=== PATIENT | male | born 1980 | race Caucasian/White ===

== ENCOUNTER 2019-06-13 21:20 | Emergency (ER) | payer OTHER ==
[~2019-06-13] VITALS: Ht 180.3 cm; Wt 87.1 kg
--- NOTE | 2019-06-13 21:35 | NUR ---
PT CAME INTO THE ED C/O R HAND PAIN S/P FALLING OFF SKATEBOARD. DENIES KO. PT AAOX4, VSS, NO ACUTE DISTRESS NOTED. PT CONNECTED TO THE MONITOR AND POX.
--- NOTE | 2019-06-13 22:17 | NUR ---
XRAY AT BEDSIDE
[2019-06-13] MEDS ORDERED: HYDROCODONE/APAP 10/325MG 1 EA TABLET ONE (22:18)
[2019-06-13] MEDS: HYDROCODONE/APAP 10/325MG 1 EA TABLET PO ONE (22:23)
--- NOTE | 2019-06-13 22:52 | NUR ---
Patient discharged to home in stable condition. Written and verbal after care instructions given. Patient verbalizes understanding of instruction.
[2019-06-13 22:53] VITALS: BP 117/84
== END 2019-06-13 22:54 | disposition home or self-care (01) ==
LOC: ER 21:28
DX: S60.221A Contusion of right hand, initial encounter (principal); F17.200 Nicotine dependence, unspecified, uncomplicated; V00.131A Fall from skateboard, initial encounter; Y93.51 Activity, roller skating (inline) and skateboarding; Y92.331 Roller skating rink as the place of occurrence of the external cause; Y99.8 Other external cause status
CPT/HCPCS: 73110; 73130-TC